=== PATIENT | female | born 1980 | race Caucasian/White ===

== ENCOUNTER 2018-09-09 09:50 | Emergency (ER) | payer BC ==
[2018-09-09 09:55] VITALS: BMI 54.2
[2018-09-09] MEDS ORDERED: ONDANSETRON *ODT* 4 MG TABLET SL ONE (10:39)
[2018-09-09] MEDS ORDERED: ONDANSETRON 4 MG/2 ML VIAL IVPUSH ONE (10:41)
[2018-09-09] MEDS ORDERED: SODIUM CHLORIDE 1,000 ML IV STA (10:41)
[2018-09-09] MEDS ORDERED: MECLIZINE HCL 25 MG TABLET (FP) PO ONE (10:48)
[2018-09-09] MEDS ORDERED: MECLIZINE HCL 25 MG TABLET (FP) ONE (10:50)
[2018-09-09] MEDS ORDERED: ONDANSETRON 4 MG/2 ML VIAL ONE (10:51)
[2018-09-09 10:58] LABS: BASO % 0.5 % (0-2.0); EOS % 0.8 % (0-4.5); HEMATOCRIT 43.3 % (32.4-45.2); HEMOGLOBIN 15.1 GM/dL (10.7-15.3); LYMPH % 31.5 % (8-40); MCH 29.6 pg (25.7-33.7); MCHC 34.8 g/dl (32.0-36.0); MEAN PLT VOLUME 8.9 fl (7.5-11.1); MONO % 4.1 % (3.8-10.2); NEUT % 63.1 % (42.8-82.8); PLATELET COUNT 203 K/MM3 (134-434); RDW 13.1 % (11.6-15.6)
--- NOTE | 2018-09-09 11:02 | PDOC ---
*Physical Exam - Vital Signs Last Vital Signs Temp Pulse Resp BP Pulse Ox 98 F 68 18 125/69 99 09/09/18 09:52 09/09/18 09:52 09/09/18 09:52 09/09/18 09:52 09/09/18 09:52 ED Treatment Course - LABORATORY CBC & Chemistry Diagram: 09/09/18 10:45 09/09/18 10:45 Medical Decision Making - Medical Decision Making 09/09/18 10:59 Pt seen by the Advanced Practice Provider under my direct supervision Ancillary studies reviewed I agree with plan as outlined by the Advanced Practice Provider SAE Murillo *DC/Admit/Observation/Transfer - Referrals Referrals: Juliocesar Wise [Primary Care Provider] - - Patient Instructions - Post Discharge Activity
[2018-09-09 11:23] LABS: ALK PHOS 53 U/L (45-117); ANION GAP 8 MMOL/L (8-16); BILIRUBIN,TOTAL 0.6 mg/dL (0.2-1); BLOOD UREA NITROGEN 14 mg/dL (7-18); CALCIUM 9.3 mg/dL (8.5-10.1); CHLORIDE 106 mmol/L (98-107); CO2 24 mmol/L (21-32); CREATININE 0.7 mg/dL (0.55-1.3); GLUCOSE,RANDOM 116 mg/dL (74-106); LIPASE 166 U/L (73-393); MAGNESIUM 1.8 mg/dL (1.8-2.4); POTASSIUM 4.3 mmol/L (3.5-5.1); SGOT/AST 59 U/L (15-37); SGPT/ALT 84 U/L (13-61); SODIUM 137 mmol/L (136-145); TOT PROT 7.8 g/dl (6.4-8.2)
--- NOTE | 2018-09-09 12:49 | PDOC ---
History of Present Illness - General Chief Complaint: Nausea/Vomiting Stated Complaint: COLD SYMPTOMS Time Seen by Provider: 09/09/18 10:32 History Source: Patient Exam Limitations: No Limitations - History of Present Illness Initial Comments: 09/09/18 11:43 38-year-old female presents to ED with complaints of dizziness upon awakening yesterday stating she felt as if the room was spinning and had to hold onto the dresser when getting up. Patient states later that day had vomited 2 which resolved after resting. Patient states woke up this morning at symptoms began again causing her to vomit 2 again. Patient now complaining also mild frontal headache without visual changes, chest pain, shortness of breath fever or chills. Patient does have history of sleep apnea and uses a CPAP at night but denies any recent change in settings recent surgery, dental work, or ear pain. Timing/Duration: 24 hours Associated Symptoms: reports: headaches, nausea/vomiting Past History - Travel Traveled outside of the country in the last 30 days: No Close contact w/someone who was outside of country & ill: No - Past Medical History Allergies/Adverse Reactions: Allergies Allergy/AdvReac Type Severity Reaction Status Date / Time No Known Allergies Allergy Verified 09/09/18 09:55 Home Medications: Ambulatory Orders Cephalexin Monohydrate [Keflex -] 500 mg PO BID #14 capsule 03/07/15 Meclizine HCl [Antivert -] 25 mg PO TID PRN #21 tablet 09/09/18 Ondansetron HCl [Zofran] 4 mg PO TID PRN #12 tablet 09/09/18 COPD: No - Reproductive History (#): 3 Para: 1 Spontaneous : 1 - Immunization History Immunization Up to Date: Yes - Suicide/Smoking/Psychosocial Hx Smoking History: Never smoked Number of Cigarettes Smoked Daily: 0 Hx Alcohol Use: No Drug/Substance Use Hx: No Substance Use Type: None Patient Lives Alone: No Review of Systems - Review of Systems Able to Perform ROS?: No Is the patient limited Faroese proficient: No Constitutional: No: Symptoms Reported HEENTM: No: Symptoms Reported Respiratory: No: Symptoms reported Cardiac (ROS): Yes: Lightheadedness ABD/GI: No: Symptoms Reported : No: Symptoms Reported Musculoskeletal: No: Symptoms Reported Integumentary: No: Symptoms Reported Neurological: Yes: Headache, Dizziness Endocrine: No: Symptoms Reported Hematologic/Lymphatic: No: Symptoms Reported *Physical Exam - Vital Signs Last Vital Signs Temp Pulse Resp BP Pulse Ox 98 F 68 18 125/69 99 09/09/18 09:52 09/09/18 09:52 09/09/18 09:52 09/09/18 09:52 09/09/18 09:52 - Physical Exam General Appearance: Yes: Nourished, Appropriately Dressed. No: Apparent Distress HEENT: positive: EOMI, LINDSAY, TMs Normal, Pharynx Normal. negative: Pale Conjunctivae Neck: positive: Supple Respiratory/Chest: positive: Lungs Clear, Normal Breath Sounds. negative: Respiratory Distress, Accessory Muscle Use Cardiovascular: positive: Regular Rhythm, Regular Rate. negative: Murmur Gastrointestinal/Abdominal: positive: Soft. negative: Tenderness Integumentary: positive: Normal Color, Warm, Moist Neurologic: positive: Normal Mood/Affect, Motor Strength 5/5 (Ambulatory) Moderate Sedation - Procedure Monitoring Vital Signs: Procedure Monitoring Vital Signs Temperature 98 F 09/09/18 09:52 Pulse Rate 68 09/09/18 09:52 Respiratory Rate 18 09/09/18 09:52 Blood Pressure 125/69 09/09/18 09:52 O2 Sat by Pulse Oximetry (%) 99 09/09/18 09:52 ED Treatment Course - LABORATORY CBC & Chemistry Diagram: 09/09/18 10:45 09/09/18 10:45 - ADDITIONAL ORDERS Additional order review: Laboratory Results 09/09/18 09/09/18 10:45 10:45 Sodium 137 Potassium 4.3 Chloride 106 Carbon Dioxide 24 Anion Gap 8 BUN 14 Creatinine 0.7 Creat Clearance w eGFR > 60 Random Glucose 116 H Calcium 9.3 Magnesium 1.8 Total Bilirubin 0.6 AST 59 H ALT 84 H Alkaline Phosphatase 53 Total Protein 7.8 Albumin 4.0 Lipase 166 Serum , Qual Negative 09/09/18 10:45 RBC 5.10 MCV 85.0 MCHC 34.8 RDW 13.1 MPV 8.9 Neutrophils % 63.1 Lymphocytes % 31.5 Monocytes % 4.1 Eosinophils % 0.8 Basophils % 0.5 - RADIOLOGY Radiology Studies Ordered: Category Date Time Status HEAD CT WITHOUT CONTRAST [CT] Stat CT Scan 09/09/18 10:49 Completed - Medications Given in the ED: ED Medications Discontinued Medications Generic Name Dose Route Start Last Admin Trade Name Freq PRN Reason Stop Dose Admin Sodium Chloride 1,000 mls @ 1,000 mls/hr 09/09/18 10:41 09/09/18 11:09 Normal Saline - IV 09/09/18 11:40 1,000 mls/hr ASDIR STA Administration Meclizine HCl 25 mg 09/09/18 10:48 09/09/18 11:46 Antivert - PO 09/09/18 10:49 25 mg ONCE ONE Administration Ondansetron HCl 4 mg 09/09/18 10:41 09/09/18 11:09 Zofran Injection IVPUSH 09/09/18 10:42 4 mg ONCE ONE Administration Medical Decision Making - Medical Decision Making 09/09/18 11:46 Chief complaint: Dizziness yesterday w/ n/v x 4 . now w/ forehead throbbing pressure Exam: + increased dizziness when turning head to the left, - hallpikes, active vomiting light brown liquid fluid Plan: labs, ua, ivf, zofran, meclizine, and head CT 09/09/18 12:50 Laboratory Tests 09/09/18 09/09/18 09/09/18 10:45 10:45 10:45 WBC 8.0 Hgb 15.1 Hct 43.3 D Neutrophils % 63.1 Sodium 137 Potassium 4.3 Chloride 106 Carbon Dioxide 24 Anion Gap 8 BUN 14 Creatinine 0.7 Creat Clearance w eGFR > 60 Random Glucose 116 H Calcium 9.3 Magnesium 1.8 Total Bilirubin 0.6 AST 59 H ALT 84 H Alkaline Phosphatase 53 Total Protein 7.8 Albumin 4.0 Lipase 166 Serum , Qual Negative Head CT - for acute pathology. Pt states nausea has resolved and is drinking water. Pt states dizziness has mod resolved and is able to get up from sitting without feeling of dizziness but does states feels " foggy " and tired 09/09/18 13:10 Urine Collected. Prescription sent for meclizine and Zofran to pharmacy. *DC/Admit/Observation/Transfer Diagnosis at time of Disposition: Dizziness - Discharge Dispostion Disposition: HOME Condition at time of disposition: Improved - Prescriptions Prescriptions: Meclizine HCl [Antivert -] 25 mg PO TID PRN #21 tablet PRN Reason: Vertigo Ondansetron HCl [Zofran] 4 mg PO TID PRN #12 tablet PRN Reason: Nausea And/Or Vomiting - Referrals Referrals: Juliocesar Wise [Primary Care Provider] - - Patient Instructions Printed Discharge Instructions: DI for Benign Paroxysmal Positional Vertigo Additional Instructions: I recommend resting drinking plenty of fluids and getting up and increments from lying position. I also recommend sleeping with your CPAP in a different position. Take medication as needed And return to ED if symptoms worsen - Post Discharge Activity
[2018-09-09 13:35] VITALS: BP 120/65; PULSE 72; TEMP 98.1
[2018-09-09 13:49] LABS: URINE APPEARANCE CLEAR; URINE BILIRUBIN NEGATIVE (<2.0 mg/dL); URINE COLOR STRAW; URINE GLUCOSE (UA) NEGATIVE (NEGATIVE); URINE KETONE NEGATIVE (NEGATIVE); URINE LEUK ESTERASE NEGATIVE (NEGATIVE); URINE NITRITE NEGATIVE (NEGATIVE); URINE PROTEIN NEGATIVE (NEGATIVE); URINE UROBILINOGEN NEGATIVE mg/dL (0.2-1.0)
== END 2018-09-09 13:35 | disposition home or self-care (01) ==
LOC: JER 09:50
PROC: 3E033GC Introduction of Other Therapeutic Substance into Peripheral Vein, Percutaneous Approach (ICD-10-PCS; principal; 2018-09-09)
DX: R42 Dizziness and giddiness (principal)
CPT/HCPCS: 36415; 70450-TC; 80053; 81003; 83690; 83735; 84703; 85025; 99282-25; J7030